=== PATIENT | male | born 1960 | race Caucasian/White ===

== ENCOUNTER 2018-01-06 14:19 | Outpatient (RCR) | payer MEDICAID, SELFPAY ==
--- NOTE | 2018-01-12 12:39 | HP.OTFCE_ITS ---
HP OT Functional Capacity Eval - Task Lift Floor (Occasional 1-33% of Day): 20# Floor (Frequent 34-66% of Day): 10# Floor (Constant 67-100% of Day): NA Floor PDL: Light Knee (Occasional 1-33% of Day): 20# Knee (Frequent 34-66% of Day): 15# Knee (Constant 67-100% of Day): NA Knee PDL: Light Waist (Occasional 1-33% of Day): 20# Waist (Frequent 34-66% of Day): 15# Waist (Constant 67-100% of Day): NA Waist PDL: Light Shoulder (Occasional 1-33% of Day): 15# Shoulder (Frequent 34-66% of Day): 8# Shoulder (Constant 67-100% of Day): NA Shoulder PDL: Sedentary-Light Overhead (Occasional 1-33% of Day): 15# Overhead (Frequent 34-66% of Day): 8# Overhead (Constant 67-100% of Day): NA Overhead PDL: Sedentary-Light - Work Activity/Posture Bending: No Ablility (0% of day) Squatting: Occasional Ability (1-33% of day) Comments: low aoccasional ability Kneeling: Occasional Ability (1-33% of day) Comments: low occasional ability Reaching out: Occasional Ability (1-33% of day) Comments: with given rest breaks Reaching up: Occasional Ability (1-33% of day) Comments: with given rest breaks Sitting: Occasional Ability (1-33% of day) Comments: with given rest breaks and ability to shift his body wt. Walking: Occasional Ability (1-33% of day) Standing: Occasional Ability (1-33% of day) Comments: with given rest breaks - Reference Duration Sedentary Sedentary Light Light Light Medium Medium Medium Heavy Very Heavy Heavy Occasional (0-33% of day) Frequent (34-66% of day) Constant (67-100% of day) 10 # Negligible Negligible 15 # 8 # Negligible 20 # 10# Negli. 35 # 18 # 7 # 50 # 25 # 10 # 75 # 100 # >100 # 38 # 50 # >50 # 15 # 20 # >20 # - Patient Information Height: 1.83 m Weight:: 102.058 kg Hand Dominance: Right - Medical History Medical History Including Restrictions: Mr. Magallanes was injured while working in a [employer] December 25, 2005. 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 Magallanes took all the weight on his side. 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 He did have physical therapy which helped somewhat. Per his current physician there is no surgery that could help. Mr. Magallanes reports an increase in pain this past year accompanied by occasional buckling of both knees. He has fallen twice and now uses a straight cane when ambulating. Mr. Magallanes is otherwise healthy with the exception of depression. which has been treated for seven years now with medication. Mr. Magallanes has been referred to a painter chassis in , but insurance would not cover it so he did not go. Pt underwent back sx in 2016 pt underwent a discectomy L4 and L5. PT states the sx was sucessful sx. Pt states 2017 pt had a fall and fx his radius with undergoing a right wrist ORIF. pt did not have any therapy following his sx. PT states he did hurt his back from his fall. Current medications include MS contin, percocet prn, ambien, proxac, fluoxetine HCL, and claritin for allergies. Pt states he was placed on a lift restriction of 20# by dr. cardoza 2016 following sx, but pt feels he is still on this lifting restriction. - Diagnoses Diagnoses: back pain/injury. Depression - Symptoms Symptoms: Low back pain. Bilateral hip pain. Bilater LE pain. right ring and little finger numbness and tingling. - Pain Pain: pt reports his low back pain level is 7/10. - Work History Work History: After the accident Mr. Magallanes returned to work light duty for 3 1/ 2 months and was then cleared to go back to work. However, he missed work often because of pain. A year after the accident Mr. Magallanes was terminated. He then worked for [employer] until November of 2010 and was let go because he could not meet work demands. He has not been able to work since. - Behavioral Behavioral: Mr. Magallanes was pleasant and cooperative throughout the evaluation. Effort was good. - ADLS ADLS: Mr. Magallanes lives with his in a two story town house. He states there is one entry step into the home. He reports there are 14 steps and two hand rails to the second story where the bathroom and bedroom are located. Mr. Magallanes is independent in basic ADLS. Pt states he can drive around town. He can shop for groceries with his but it is painful. He is unable to do laundry or vacuum or sweep and does not cook. is on disability at this time. - Physical Examination ROM: Bilateral upper extremity ROM is within normal limits. Bilateral upper extremity strength tested grossly at 5/5. Bilateral lower extremity range was within normal limits. right hip flexion strength tested grossly at 44/5. Left hip flexion tested at 5/5. Hip adduction/abduction and internal/external rotation tested grossly at 4+/5. Bilateral knee flexion tested at 4+/5 and extension at 5/5. Mr. Magallanes reported a increase in back pain to 8/10 but pain did decrease back to his baseline after sitting down following manual muscle testing. Lumbar flexion was limited at 60 degrees and extension at 20 degrees. Right Retail Merchandising Manager Strength Average: 26.66 Right Retail Merchandising Manager Strength Percentile: <4% possible due to hx of ORIF right wrist 2017 Left Retail Merchandising Manager Strength Average: 75.00 Left Retail Merchandising Manager Strength Percentile: 25% Right Lateral Pinch Average: 10.66 Right Lateral Pinch Percentile: <10% Left Lateral Pinch Average: 12.00 Left Lateral Pinch Percentile: <10% Right Tripod Pinch Average: 10.00 Right Tripod Pinch Percentile: <10% Left Tripod Pinch Average: 11.33 Left Tripod Pinch Percentile: 10% Sensation: tested. right hand. [id number]- RF at 2.83 and right LF at 3.61. Left digits at 2.83 Fine Motor: Purdue pegboard. right 7%. left 35%. # of pairs Bilateral hands 25%. Assembaly bilateral hands 28% Balance: no loss of balance noted during assesement - Non Material Handling Activities Bending: Pt was unable to perfrom Squatting: Pt demo the ability to squat three times and eight times with use of external support. pt reported low back pain 8/10. pt can squat on a low occasional basis. Kneeling: pt was able to kneel three times with use of external support. He reported back pain 8/10. He can kneel on a low occasional basis. Reaching out/up: Pt demo while sitting the ability to reach out three times, ten times- pt reported low back pain increased from 7/10 to 8/10. pt was able to complete 8 times rapidly but back pain increased to 8/10. pt completed this task while sitting. pt can reach out occasional basis while sitting. pt completed reaching up while standing agaist a wall three times and ten times but was unable to complete ten times rapidly. pt can reach up/out on a low occational basis with accomodations. pt demo while standing leaning on the wall the ability to reach up three times and then ten times. Pt required a rest break and then completed reaching up ten times rapidly, he reported back pain increase 9/10. pt completed this task leaning agains the wall. Pt can reach up on a low occasional basis. due to back pain. Walking: Mr. Magallanes walked for 10 minutes with pain increasing from 7/10 to 8/ 10. He also reported left hip pain following. He did use the cane for the entire walk. He demo a antalgic gait. He is able to walk on an low occasional basis. per pt report on functional activities questionnaire pt reports he can walk at a mall,fair,event etc. for 5-10 min before pt has to sit. 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 per pt report on functional activities questionnaire pt reports he can stand/walk for 0 hours a day. Sitting: pt demo the ability to sit for 24 min with no apparent discomfot- he did get up after this time and lean on the wall- states this makes him feel better. pt can sit on a occasional basis. per pt report on functional activities questionnaire pt reports he can sit for 8 hours a day. Climbing Stairs: Mr. Magallanes ascended and descended a flight of stairs in alternate steps with a slow cautious step pattern. - Dynamic Occasional Lifting Capacity Floor Lift: pt demo the ability to lift 20# maximally from this level. Knee Lift: pt demo the ability to lift 20# maximally from this level. Waist Lift: pt demo the ability to lift 20# maximally from this level. Shoulder Lift: pt demo the ability to lift 15# maximally from this level. Overhead Lift: pt demo the ability to lift 15# maximally from this level. Carrying: Pt no ability to carry 10# in right UE with cane in left for support with ambulates. Comments: After lifting and carrying Mr. Magallanes reported back pain at 7-8/10. pt also stated right wrist pain 5/10 following the 10# carry.
== END 2018-01-06 19:00 | disposition home or self-care (01) ==
LOC: OT 14:19
PROVIDERS: Family Provider Family Medicine; PCP Family Medicine; Visit Provider Family Medicine
DX: F32.9 Major depressive disorder, single episode, unspecified (principal); F41.9 Anxiety disorder, unspecified; G47.00 Insomnia, unspecified
CPT/HCPCS: 97750